=== PATIENT | male | born 1950 | race Caucasian/White ===

== ENCOUNTER → 2024-02-04 | Outpatient (CLI) | payer MEDICARE, BC, SELFPAY ==
[2024-02-04 09:07] LABS: Basophils % (Auto) 1 % (0-2.5); Eosinophils # (Auto) 0.3 Thou/mm3 (0.0-0.5); Eosinophils % (Auto) 5 % (0-10); Hematocrit 47.4 % (41.0-53.0); Immature Granulocytes % (Auto) 0 % (0-0); Immature Granulocytes Auto 0.01 Thou/mm3 (0.00-0.00); Lymphocytes # (Auto) 1.6 Thou/mm3 (1.0-4.8); Lymphocytes % (Auto) 29 % (10-50); Mean Corpuscular HGB Conc 33.8 g/dl (31.0-37.0); Mean Corpuscular Hemoglobin 31.1 pg (25.0-35.0); Mean Corpuscular Volume 92 fL (80-100); Monocytes # (Auto) 0.7 Thou/mm3 (0.0-0.8); Monocytes % (Auto) 13 % (0-12); Neutrophils # (Auto) 2.9 Thou/mm3 (1.8-7.7); Neutrophils % (Auto) 53 % (37-80); Nucleated Red Blood Cell % 0 /100 WBC (0); Platelet Count 190 Thou/mm3 (140-440); RDW Standard Deviation 47.2 fL (35.1-43.9); Red Blood Count 5.15 Miln/mm3 (4.50-5.90); White Blood Count 5.4 Thou/mm3 (3.8-10.6)
[2024-02-04 09:14] LABS: Glucose Estimated Average 123 mg/dL (80-131); Hemoglobin A1C 5.9 % Hgb (4.8-6.0)
[2024-02-04 09:33] LABS: Collection Type, Urine Clean Catch; WBC,Urine 0 /hpf (0-5)
[2024-02-04 09:43] LABS: Vitamin D 25 Hydroxy Total 33.9 ng/mL (7.3-40.2)
[2024-02-04 09:49] LABS: Alanine Aminotransferase 17 U/L (10-49); Albumin, Serum 4.5 gm/dL (3.4-4.8); Albumin/Globulin Ratio 2.1 (1.2-2.2); Alkaline Phosphatase 111 U/L (46-116); Anion Gap 4 (7-16); Aspartate Amino Transferase 24 U/L (0-34); BUN/Creatinine Ratio 27 Ratio (12-20); Bilirubin,Total 0.7 mg/dL (0.3-1.2); Blood Urea Nitrogen 24 mg/dL (9-23); Calcium 9.5 mg/dL (8.3-10.6); Calcium (Corrected) 9.5 mg/dL (8.5-10.1); Carbon Dioxide 31.1 mMol/L (20.0-31.0); Cardiac Risk Estimate 2.4 RATIO (4.0-6.7); Chloride 103 mMol/L (98-107); Cholesterol 151 mg/dL (132-200); Creatinine (Component) 0.9 mg/dL (0.6-1.3); Globulin 2.1 gm/dL (2.3-3.5); Glucose 101 mg/dL (74-106); HDL Cholesterol 63 mg/dL (40-60); LDL Cholesterol,Calculated 76 mg/dL (0-130); Osmolality,Calculated 279 (275-295); Potassium 4.4 mMol/L (3.4-5.1); Sodium 138 mMol/L (136-145); Thyroid Stimulating Hormone 2.01 uIU/mL (0.55-4.78); Total Protein 6.6 gm/dL (5.7-8.2); Triglycerides 59 mg/dL (30-150); eGFR > 60 See Note
[2024-02-04 10:36] LABS: Amorphous Crystals,Urine Present (Absent); Bilirubin,Urine Negative (Negative); Blood,Urine Negative (Negative); Clarity,Urine Clear (Clear/Hazy); Color,Urine Yellow (Lt Yel-Yel); Culture Indicated,Urine Not Indicated; Glucose, Urine Negative (Negative); Ketones,Urine Negative (Negative); Leukocyte Esterase,Urine Negative (Negative); Nitrite,Urine Negative (Negative); PH,Urine 6.5 (5.0-7.0); Protein,Urine Negative (Neg - Trace); RBC,Urine 4 /hpf (0-3); Specific Gravity,Urine 1.022 (1.001-1.035); Squamous Epithelial Cell,Urine 1 /hpf (0-5); Urobilinogen,Urine Negative mg/dL (0.0-1.0)
== END | disposition home or self-care (01) ==
LOC: COPL 07:42
PROVIDERS: PCP Family Medicine; Referring Provider Registered Nurse; Visit Provider Registered Nurse
DX: Z00.00 Encounter for general adult medical examination without abnormal findings (principal); E78.2 Mixed hyperlipidemia
CPT/HCPCS: 36415; 80053; 80061; 81001; 82306; 83036; 84443; 85025

== ENCOUNTER → 2024-12-13 | Outpatient (CLI) | payer MEDICARE, BC, SELFPAY ==
--- NOTE | 2024-12-13 09:35 | XR_ITS ---
EXAMINATION: PA lateral chest 2 views TECHNIQUE: Upright PA lateral chest 2 views Date and time: December 13, 2024, 0944 hours INDICATIONS: Cough in 15 days FINDINGS: Dense pneumonic consolidation versus pulmonary mass, 36 mm, right upper lobe Normal heart size The osseous structures are intact IMPRESSION: Recommend CT scan chest without contrast follow-up to exclude 36 mm pulmonary mass right upper lobe
--- NOTE | 2024-12-13 09:35 | XR_ITS ---
Examination: Knee bilateral, 4 views Technique: AP right and left knees 4 views Date and time: December 13, 2024, 0946 hours INDICATIONS: Bilateral knee pain several years. FINDINGS: Advanced bilateral tricompartment osteoarthritis No fractures or dislocations. Bilateral small knee effusions IMPRESSION: Advanced bilateral tricompartment osteoarthritis
[2024-12-13 10:24] LABS: Basophils # (Auto) 0.1 Thou/mm3 (0.0-0.2); Basophils % (Auto) 1 % (0-2.5); Eosinophils # (Auto) 0.6 Thou/mm3 (0.0-0.5); Eosinophils % (Auto) 6 % (0-10); Hematocrit 46.8 % (41.0-53.0); Hemoglobin 15.7 g/dL (13.5-16.0); Immature Granulocytes Auto 0.06 Thou/mm3 (0.00-0.00); Lymphocytes # (Auto) 1.0 Thou/mm3 (1.0-4.8); Lymphocytes % (Auto) 10 % (10-50); Mean Corpuscular HGB Conc 33.5 g/dl (31.0-37.0); Mean Corpuscular Hemoglobin 30.4 pg (25.0-35.0); Mean Corpuscular Volume 91 fL (80-100); Monocytes # (Auto) 1.0 Thou/mm3 (0.0-0.8); Monocytes % (Auto) 10 % (0-12); Neutrophils # (Auto) 7.7 Thou/mm3 (1.8-7.7); Neutrophils % (Auto) 74 % (37-80); Nucleated Red Blood Cell # 0.00 Thou/mm3 (0.00-0.00); Nucleated Red Blood Cell % 0 /100 WBC (0); Platelet Count 306 Thou/mm3 (140-440); RDW Standard Deviation 43.6 fL (35.1-43.9); Red Blood Count 5.17 Miln/mm3 (4.50-5.90); White Blood Count 10.4 Thou/mm3 (3.8-10.6)
[2024-12-13 10:37] LABS: Alanine Aminotransferase 78 U/L (10-49); Albumin, Serum 4.5 gm/dL (3.4-4.8); Albumin/Globulin Ratio 1.3 (1.2-2.2); Alkaline Phosphatase 126 U/L (46-116); Anion Gap 11 (7-16); Aspartate Amino Transferase 49 U/L (0-34); BUN/Creatinine Ratio 19 Ratio (12-20); Bilirubin,Total 0.7 mg/dL (0.3-1.2); Blood Urea Nitrogen 19 mg/dL (9-23); Calcium 9.6 mg/dL (8.3-10.6); Calcium (Corrected) 9.6 mg/dL (8.5-10.1); Carbon Dioxide 26.8 mMol/L (20.0-31.0); Chloride 97 mMol/L (98-107); Creatinine (Component) 1.0 mg/dL (0.6-1.3); Globulin 3.5 gm/dL (2.3-3.5); Glucose 118 mg/dL (74-106); Osmolality,Calculated 273 (275-295); Potassium 4.0 mMol/L (3.4-5.1); Sodium 135 mMol/L (136-145); Total Protein 8.0 gm/dL (5.7-8.2); eGFR > 60 See Note
[2024-12-14 12:41] LABS: Cocid Sro, CF/ID (UCD) NO CHG* See Sep Rpt
[2024-12-14 12:41] LABS: Cocci Serology, IgM Positive (Negative)
== END | disposition home or self-care (01) ==
PROVIDERS: PCP Registered Nurse; Referring Provider Registered Nurse; Visit Provider Registered Nurse
DX: R05.9 Cough, unspecified (principal); M17.0 Bilateral primary osteoarthritis of knee; R53.82 Chronic fatigue, unspecified
CPT/HCPCS: 36415; 71046; 73560; 80053; 85025; 86635

== ENCOUNTER 2024-12-15 18:29 | Emergency (ER) | payer MEDICARE, BC, SELFPAY ==
[2024-12-15 18:58] VITALS: BP 140/86; PULSE 77; RESP 19; TEMP 36.4; O2SAT 95; BMI 28.5
--- NOTE | 2024-12-15 19:10 | EDRME_ITS ---
Rapid Medical Screening Exam [facility] Arrival date/time: 12/15/24 18:29 74M with no significant PMH presents to ED 2.5 weeks of weakness/fatigue and intermittent CP and SOB. Patient was sent by PCP for further evaluation based on outpatient CT results today. Cocci IgM was positive so patient was started on Diflucan. TB test is pending as well. Chief Complaint: General Adult/Misc Complain Vital signs: Vital Signs Temperature 97.6 F 12/15/24 18:58 Pulse Rate 77 12/15/24 18:58 Respiratory Rate 19 12/15/24 18:58 Blood Pressure 140/86 H 12/15/24 18:58 Pulse Oximetry (%) 95 12/15/24 18:58 Oxygen Delivery Method Room Air 12/15/24 18:58
[2024-12-15 19:45] LABS: Lactate (Lactic Acid) 1.1 mMol/L (0.4-2.0)
[2024-12-15 19:49] LABS: Basophils # (Auto) 0.1 Thou/mm3 (0.0-0.2); Basophils % (Auto) 1 % (0-2.5); Eosinophils # (Auto) 1.2 Thou/mm3 (0.0-0.5); Eosinophils % (Auto) 14 % (0-10); Hematocrit 44.4 % (41.0-53.0); Hemoglobin 14.9 g/dL (13.5-16.0); Immature Granulocytes Auto 0.08 Thou/mm3 (0.00-0.00); Lymphocytes # (Auto) 1.5 Thou/mm3 (1.0-4.8); Lymphocytes % (Auto) 18 % (10-50); Mean Corpuscular HGB Conc 33.6 g/dl (31.0-37.0); Mean Corpuscular Hemoglobin 30.0 pg (25.0-35.0); Mean Corpuscular Volume 89 fL (80-100); Monocytes # (Auto) 1.0 Thou/mm3 (0.0-0.8); Monocytes % (Auto) 11 % (0-12); Neutrophils # (Auto) 4.7 Thou/mm3 (1.8-7.7); Neutrophils % (Auto) 55 % (37-80); Nucleated Red Blood Cell # 0.00 Thou/mm3 (0.00-0.00); Nucleated Red Blood Cell % 0 /100 WBC (0); Platelet Count 296 Thou/mm3 (140-440); RDW Standard Deviation 42.7 fL (35.1-43.9); Red Blood Count 4.97 Miln/mm3 (4.50-5.90); White Blood Count 8.5 Thou/mm3 (3.8-10.6)
[2024-12-15 20:03] LABS: B-Type Natriuretic Peptide < 20 pg/mL (0-100)
[2024-12-15 20:12] LABS: Alanine Aminotransferase 97 U/L (10-49); Albumin, Serum 4.3 gm/dL (3.4-4.8); Albumin/Globulin Ratio 1.2 (1.2-2.2); Alkaline Phosphatase 166 U/L (46-116); Anion Gap 11 (7-16); Aspartate Amino Transferase 65 U/L (0-34); BUN/Creatinine Ratio 20 Ratio (12-20); Bilirubin,Total 0.5 mg/dL (0.3-1.2); Blood Urea Nitrogen 20 mg/dL (9-23); Calcium 9.5 mg/dL (8.3-10.6); Calcium (Corrected) 9.5 mg/dL (8.5-10.1); Carbon Dioxide 27.4 mMol/L (20.0-31.0); Chloride 97 mMol/L (98-107); Creatinine (Component) 1.0 mg/dL (0.6-1.3); Estimated Creatinine Clearance 74.3 mL/min (>60); Globulin 3.7 gm/dL (2.3-3.5); Glucose 110 mg/dL (74-106); Osmolality,Calculated 273 (275-295); Potassium 3.9 mMol/L (3.4-5.1); Procalcitonin 0.20 ng/ml (0.0-0.49); Sodium 135 mMol/L (136-145); Total Protein 8.0 gm/dL (5.7-8.2); Troponin I < 0.002 ng/mL (0.0-0.045); eGFR > 60 See Note
[2024-12-15 21:24] VITALS: BP 154/94; PULSE 66; RESP 17; TEMP 36.6; O2SAT 96
--- NOTE | 2024-12-15 21:28 | PD.EDADULT ---
ED General [facility]ME/[facility] General Chief complaint: General Adult/Misc Complain Stated complaint: SENT BY PCP FOR CT SCAN FURTHER EVALUATION Time Seen by Provider: 12/15/24 21:37 Arrival date/time: 12/15/24 18:29 CC: Cough HPI patient was referred to the emergency room after cocci titer came back positive chest x-ray showed pneumonia. Primary care referred him to the emergency room after the CT showed a dense consolidation along with 50 nodules. Patient has no shortness of breath no difficulty breathing no chest pain no fever no nausea or vomiting has no other complaints already started his fluconazole was taken his first 2 doses without complications. Currently the patient is awake alert oriented nontoxic-appearing and not in any acute distress. RME / HPI RME / HPI narrative: 12/15/24 18:29 74M with no significant PMH presents to ED 2.5 weeks of weakness/fatigue and intermittent CP and SOB. Patient was sent by PCP for further evaluation based on outpatient CT results today. Cocci IgM was positive so patient was started on Diflucan. TB test is pending as well. Related Data Home Medications ?Medication ?Instructions ?Recorded ?Confirmed atorvastatin 40 mg tablet 40 mg PO QPM 06/09/20 06/09/20 zolpidem 10 mg tablet (Ambien) 10 mg PO HS 06/09/20 06/09/20 Allergies Allergy/AdvReac Type Severity Reaction Status Date / Time No Known Allergies Allergy Verified 12/15/24 18:33 Review of Systems Review of Systems Narrative Review of Systems: GEN: No fever, no chills, no weight loss EYES: No discharge, no visual changes, no pain HEENT: No ear pain, no congestion, no sore throat PULM: No shortness of breath, no cough, no congestion CV: No chest pain, no dyspnea on exertion, no palpitations GI: No nausea, no vomiting, no diarrhea, no pain, no constipation : No frequency, no urgency, no dysuria MUSC/SKEL: No joint pain, no back pain SKIN: No rash PSYCH: No hallucinations, no depression HEME/LYMPH: No easy bleeding or bruising tendencies NEURO: No weakness, no headache Past Medical History Past Medical History CARDIAC: Positive Hypercholesterolemia; Negative Congestive Heart Failure RESPIRATORY: Negative Chronic Obstructive Pulmonary Disease (COPD) GASTROINTESTINAL: Positive Ulcer (20 YRS AGO) GENITOURINARY: Negative Renal Disease MUSCULOSKELETAL: Positive Arthritis ENDOCRINE: Negative Diabetes Mellitus Type 1 or Diabetes Mellitus Type 2 Social History SMOKING STATUS: Light (< 1 pack/day) SUBSTANCE USE: marijuana ED Exam Narrative Physical exam: [General: Not in any acute distress Head normocephalic HEENT: Within acceptable limits Neck is supple nontender Chest equal chest rise nontender to palpation Respiratory: Clear to auscultation no wheezes crackles or rubs CV: Rate rhythm is regular no murmurs rubs or clicks Abdomen is soft nontender no masses positive bowel sounds all 4 quadrants Back: No CVA tenderness no spinous process tenderness from cervical spine thoracic and lumbar spine Skin: Intact no petechiae rash induration ulceration or crepitus Extremities: Moving all extremity against resistance cap refill less than 2 seconds neurosensory intact Neuro: Awake alert oriented x3 Glascow coma 15 no focal deficits] Course Quality Measures none Orders Category Date Time Status BNP [B-Type Natriuretic Peptide] Stat Lab 12/15/24 19:33 Completed CBC Stat Lab 12/15/24 19:33 Completed CMP [Comprehensive Metabolic Panel] Stat Lab 12/15/24 19:33 Completed Lactate (Lactic Acid) Stat Lab 12/15/24 19:33 Completed Procalcitonin Stat Lab 12/15/24 19:33 Completed Troponin I Stat Lab 12/15/24 19:33 Completed Vital Signs Vital signs: Vital Signs Temperature 97.6 F 12/15/24 18:58 Pulse Rate 77 12/15/24 18:58 Respiratory Rate 19 12/15/24 18:58 Blood Pressure 140/86 H 12/15/24 18:58 Pulse Oximetry (%) 95 12/15/24 18:58 Oxygen Delivery Method Room Air 12/15/24 18:58 Discharge Plan Plan Patient Disposition: HOME (Self Care) Patient condition on transfer: Stable Prescriptions/Referrals Prescriptions/Med Rec: No Action atorvastatin 40 mg Tablet 40 mg PO QPM zolpidem [Ambien] 10 mg Tablet 10 mg PO HS Referrals: Miguel A Krishnamurthy MD [Primary Care Provider, Family Practice] - In 1 week Problem List Clinical Impression: Coccidioidomycosis Patient/Caregiver Discharge Instructions Other Activity Instructions:: Take the medications as prescribed, follow-up regularly with your doctor as scheduled or recommended. If there is an abrupt onset of high fever shortness of breath or difficulty breathing or chest pain return to the emergency room for reevaluation. Education Materials: Understanding Coccidioidomycosis Print Language: Martiniquais Stand Alone Forms: [employer] Award Info., Work/School Release, Patient Portal Info Letter PATRICIA/TOSHIA Supervising Physician YESSY Supervising Physician: Fabio Sharma ENP MDM Clinical Information Provided by: patient Medical Records reviewed [facility] Meds/Rx considered, not ordered None Labs/Rad/Tests considered, not ordered None Chronic Illness/Social Conditions Explain: Recent cocci diagnosis on fluconazole EKG EKG not done Labs Labs: interpreted by me Lab(s) Interpretation(s): CBC shows no acute leukocytosis anemia thrombocytopenia CMP shows sodium 135 no other electrolyte imbalances renal impairment. T. bili is within acceptable limits AST is 65 ALT of 97 alk phos at 166 Troponin is unremarkable BNP is unremarkable. Process Calcitonin is within acceptable limits Lactic acid of 1.1. Imaging Imaging interpretation: interpreted by me Imaging Interpretation(s): CT of chest from this morning shows a consolidated right upper lobe mass along with greater than 50 small nodules. Medication Administration(s) none Patient is already aware of these findings, patient will be discharged home as he is already on fluconazole 60-day course and will follow-up with Dr. Krishnamurthy.
[2024-12-15 21:47] VITALS: BP 141/84; PULSE 62; RESP 18; TEMP 36.9; O2SAT 98
== END 2024-12-15 21:50 | disposition home or self-care (01) ==
PROVIDERS: Physician Assistant; Emergency Provider Emergency Medicine; PCP Family Medicine
DX: J18.9 Pneumonia, unspecified organism (principal); B38.9 Coccidioidomycosis, unspecified
CPT/HCPCS: 36415; 80053; 83605; 83880; 84145; 84484; 85025; 99283

== ENCOUNTER → 2024-12-15 | Outpatient (CLI) | payer MEDICARE, BC, SELFPAY ==
[2024-12-15 09:08] LABS: Quantiferon-TB* See Sep Rpt
--- NOTE | 2024-12-15 09:17 | XR_ITS ---
Examination: CT chest, without intravenous contrast. Sagittal and coronal 2-D reconstructions. Exam date and time: December 15, 2024, 0922 hours INDICATIONS: Coughing 2 weeks, diagnosis coccidiomycosis, dense pneumonic consolidation versus 36 mm pulmonary mass right upper lobe on chest x-ray December 13, 2024 CTDI:vol (mGy) 12.2 DLP: (mGycm) 474 Technique: Multiple 3.0 mm axial sections of the chest to been obtained. Bone and lung density settings are obtained. Sagittal and coronal 2-D reconstructions have been obtained. Low dose protocols were performed. One or more of the following dose reduction techniques were used; automated exposure control, adjustment of the mA and/or KV according to patient size, use of iterative reconstruction technique. Findings: Multiple right tracheobronchial lymph nodes, the largest 15 mm Multiple pretracheal lymph nodes, the largest 16 mm No thoracic aortic aneurysm dilatation Pulmonary artery segments are not enlarged. Wedge-shaped dense parenchymal disease in the anterior segment right upper lobe, image 127, 4.2 x 3.4 cm At least 50 bilateral noncalcified pulmonary nodules ranging in size from 2 mm to 10 mm Trace pericardial thickening No visualized liver or splenic lesion Tiny gallstones No pancreatic mass Solid-appearing left adrenal nodule 16 mm IMPRESSION: Wedge-shaped dense parenchymal disease anterior segment right upper lobe At least 50 bilateral noncalcified pulmonary nodules Cholelithiasis Left renal 16 mm nodule, recommend MRI abdomen adrenal glands follow-up pre and postcontrast
== END | disposition home or self-care (01) ==
LOC: CDIM 08:52 → COPL 08:55 → CDIM 01-05 07:40
PROVIDERS: PCP Registered Nurse; Referring Provider Registered Nurse; Visit Provider Registered Nurse
DX: R91.8 Other nonspecific abnormal finding of lung field (principal); K80.20 Calculus of gallbladder without cholecystitis without obstruction; R05.9 Cough, unspecified
CPT/HCPCS: 71250; 86480